=== PATIENT | female | born 1950 | race Caucasian/White ===

== ENCOUNTER → 2024-04-20 | Outpatient (CLI) | payer OTHER ==
[~2024-04-20] MED LIST: ALBU90OI61 INH; ASCO500 PO; ASPI81CH PO; ATEN100 PO; CALCAVITDA PO; Desyrel150 MG PO; ERGO400 PO; FIBER THERAPY625 MG PO; FISH1000 PO; LISHYD2025 PO; METF500 PO; Prozac20 MG PO
[2024-04-20 15:37] LABS: Creatinine Urine 56.9 mg/dL (27.00-270.00); Microalbumin, Urine Quant. 6.11 mg/L (0.000-20.000); Protein, Urine Quantitative 10.9 mg/dL (0.0-11.9)
== END ==
LOC: LAB 11:00 → LAB SHORT 11:00
PROVIDERS: Internal Medicine Nephrology
DX: N18.30 Chronic kidney disease, stage 3 unspecified (principal); D63.1 Anemia in chronic kidney disease; E11.21 Type 2 diabetes mellitus with diabetic nephropathy; N25.81 Secondary hyperparathyroidism of renal origin; E55.9 Vitamin D deficiency, unspecified; E78.00 Pure hypercholesterolemia, unspecified; R76.9 Abnormal immunological finding in serum, unspecified; R94.5 Abnormal results of liver function studies; R94.6 Abnormal results of thyroid function studies; D51.8 Other vitamin B12 deficiency anemias; D52.8 Other folate deficiency anemias; D50.9 Iron deficiency anemia, unspecified
CPT/HCPCS: 81050; 82043; 82570; 84156